=== PATIENT | female | born 1995 | race African-American/Black ===

== ENCOUNTER → 2016-04-15 | Outpatient (REF) | payer BC | LOC: M LAB REF 17:03 | PROVIDERS: ATTEND Family Medicine | DX: N76.4 Abscess of vulva (principal) ==

== ENCOUNTER → 2018-06-20 | Outpatient (REF) | payer BC | LOC: M LAB REF 17:33 | PROVIDERS: ATTEND Family Medicine | DX: R35.0 Frequency of micturition (principal) ==

== ENCOUNTER → 2018-07-20 | Outpatient (REF) | payer BC ==
[2018-07-20 21:48] LABS: CHLAMYDIA DNA AMPLIFICATION NEGATIVE (NEGATIVE); GC DNA AMPLIFICATION NEGATIVE (NEGATIVE)
== END ==
LOC: M LAB REF 18:15
PROVIDERS: ATTEND Family Medicine
DX: Z11.3 Encounter for screening for infections with a predominantly sexual mode of transmission (principal); Z12.4 Encounter for screening for malignant neoplasm of cervix
CPT/HCPCS: 87491; 87591; G0123

== ENCOUNTER → 2023-12-14 | Outpatient (REF) | payer BC | LOC: M LAB REF 17:06 | PROVIDERS: ATTEND Family Medicine | DX: N76.0 Acute vaginitis (principal) ==

== ENCOUNTER → 2024-02-18 | Outpatient (CLI) | payer BC | LOC: M PLAIMG 14:23 | PROVIDERS: ATTEND Family Medicine | DX: R05.2 Subacute cough (principal) ==

== ENCOUNTER → 2025-03-12 | Outpatient (CLI) | payer BC, OTHER, SELFPAY | LOC: M PLAIMG 11:53 | PROVIDERS: ATTEND Nurse Practitioner Adult Health | DX: M54.2 Cervicalgia (principal) ==